=== PATIENT | male | born 1945 | race Caucasian/White ===

== ENCOUNTER 2025-02-07 14:44 | Emergency (ER) | payer MEDICARE, MEDICAID ==
[~2025-02-07] VITALS: Ht 167.6 cm; Wt 72.7 kg
[~2025-02-07 14:44] MED LIST: DOL10T PO; FLUO-1 PO; HYDR-4353 PO; TOLT2CAP7 PO; [UNRECOGNIZED DRUG - CODE] PO
[2025-02-07 15:11] VITALS: BP 150/78; PULSE 68; RESP 17; O2SAT 99
[2025-02-07 16:06] LABS: BASOPHILS % (AUTO) 0.5 % (0-1); EOSINOPHILS % (AUTO) 0.6 % (0-6); HEMATOCRIT 46.3 % (42.0-52.0); HEMOGLOBIN 15.8 g/dl (14.0-17.9); LYMPHOCYTES # (AUTO) 1.4 X10'3 (1.1-4.8); LYMPHOCYTES % (AUTO) 16.8 % (21-51); MEAN CORPUSCULAR HEMOGLOBIN 31.3 PG (27.0-31.0); MEAN CORPUSCULAR VOLUME 91.9 FL (78-98); MEAN PLATELET VOLUME 7.2 FL (7.4-10.4); MONOCYTES # (AUTO) 0.7 X10'3 (0-0.9); MONOCYTES % (AUTO) 8.6 % (2-12); NEUTROPHILS # (AUTO) 6.2 X10'3 (1.8-7.7); NEUTROPHILS % (AUTO) 73.5 % (42-75); PLATELET COUNT 243 X10'3 (140-440); RED BLOOD COUNT 5.04 X10'6 (4.70-6.10); WHITE BLOOD COUNT 8.5 X10'3 (4.5-11.0)
--- NOTE | 2025-02-07 16:06 | Physician Documentation ---
History of Present Illness ~ Chief Complaint: See Chief Complaint Stated Complaint: X3 WEEKS WITH NO SLEEP Time Seen by MD: 15:21 Primary Medical Doctor: Dr. Barnes HPI 79-year-old male presents to ED stating he has had difficulty sleeping for the last two weeks. He states he does not normally have insomnia. Denies any other diagnoses does not see a doctor. Denies any drug use occasionally drinks alcohol. Day of Onset: February 07, 2025 Medication Reconciliation Allergies: Coded Allergies: Penicillins (Unverified Allergy, Intermediate, RASH, 08/22/09) Scheduled Fluoxetine Hcl (Prozac), 80 MG PO DAILY, (Reported) Hydrocodone Bit/Acetaminophen ([place] 10-325 Tablet), 10 MG PO PRN, (Reported) Methadone Hcl (Dolophine), 10 MG PO DAILY, (Reported) Quetiapine Fumarate* (Seroquel*), 1 TAB PO HS Terazosin Hcl (Terazosin Hcl), 4 MG PO DAILY, (Reported) Tolterodine Tartrate ([place]), 2 MG PO DAILY, (Reported) Past Medical History Past Surgical History: no surgical history Alcohol Use: None Drug Use: none Review of Systems All Other Systems at this time: Reviewed and Negative Physical Exam Vital Signs: Temperature: 97.8, Heart Rate: 68, Respiratory Rate: 17, BP: 150/78, Pulse Oximetry: 99, Weight: 72.730 Oxygen Flow Rate: 0 Physical Exam General: Alert, no apparent distress. Cardiovascular: Regular rate and rhythm, no murmurs. Gastrointestinal: Soft, nontender, nondistended. Bowels sounds present. Neurologic: Oriented x4. Psychiatric: Normal mood and affect. Skin: Normal color, warm and dry. No edema, no ecchymosis. Progress Results/Orders Results/Orders Orders - SHARIF VUONG [employer] INSTRUCTOR Urinalysis, Cult If Indicated (02/07/25 15:22) Completed Orders - SHARIF VUONG [employer] IN[employer] Cbc/Diff (02/07/25 15:22) BMP (02/07/25 15:22) Vital Signs 02/07/25 02/07/25 15:11 16:34 Temp 97.8 97.8 Pulse 68 Resp 17 B/P (MAP) 150/78 Pulse Ox 99 O2 Flow Rate 0 Laboratory Tests Test 02/07/25 15:48 White Blood Count 8.5 Red Blood Count 5.04 Hemoglobin 15.8 Hematocrit 46.3 Mean Corpuscular Volume 91.9 Mean Corpuscular Hemoglobin 31.3 H Mean Corpuscular Hemoglobin Concent 34.0 Red Cell Distribution Width 14.0 Platelet Count 243 Mean Platelet Volume 7.2 L Neutrophils (%) (Auto) 73.5 Lymphocytes (%) (Auto) 16.8 L Monocytes (%) (Auto) 8.6 Eosinophils (%) (Auto) 0.6 Basophils (%) (Auto) 0.5 Neutrophils # (Auto) 6.2 Lymphocytes # (Auto) 1.4 Monocytes # (Auto) 0.7 Eosinophils # (Auto) 0.0 Basophils # (Auto) 0.0 CBC Comment Sodium Level 136 Potassium Level 3.9 Chloride Level 101 Carbon Dioxide Level 21.3 L Anion Gap 14 Blood Urea Nitrogen 12 Creatinine 1.19 H Estimated GFR/1.73 m2 59 BUN/Creatinine Ratio 10.1 Glucose Level 118 H Calcium Level 9.7 Albumin 4.2 Chemistry Comments Medical Decision Making Findings While awaiting for patient's laboratory were of value so he left the ER pres enting full evaluation. Him Seroquel to his pharmacy to help with sleep I also think there may be an element of a psychiatric illness involved in his case I can not confirm at this time Differential Dx:Considerations: Include: Alcohol abuse, Anxiety, Bipolar disorder, Conversion disorder, Depression, Encephaloathy, Homicidal, Panic disorder, Personality disorder, Schizophrenia, Substance abuse, Suicidal, Other Departure Disposition: 01 HOME / SELF CARE / HOMELESS Impression: Primary Impression: Insomnia Condition: Stable Discharge Instructions: Insomnia Referrals: NO PRIMARY CARE PROVIDER (PCP) Prescriptions Quetiapine Fumarate* (Seroquel*) 100 Mg Tablet 1 TAB PO HS for 30 Days, #30 TAB Prov: SHARIF VUONG NP 02/07/25 Education Educated: Patient Educated regarding: diagnosis Signature Scribe Signature: gThe note accurately reflects work and decisions made by me.Sharif Youssef NP 02/07/25 23:51 Attestation: The note accurately reflects work and decisions made by me.Sharif Youssef NP 02/07/25 23:51 SHARIF VUONG NP February 07, 2025 16:06
[2025-02-07] MEDS ORDERED: QUET-1 PO (16:21)
[2025-02-07 16:34] VITALS: TEMP 97.8
[2025-02-07 17:12] LABS: ALBUMIN 4.2 G/DL (3.4-5.0); ANION GAP 14 (8-16); BLOOD UREA NITROGEN 12 MG/DL (7-18); BUN/CREATININE RATIO 10.1 (10.0-20.0); CALCIUM 9.7 MG/DL (8.5-10.1); CHLORIDE 101 MMOL/L (99-107); CREATININE 1.19 MG/DL (0.60-1.10); GLUCOSE 118 MG/DL (70-104); POTASSIUM 3.9 MMOL/L (3.5-5.1); SODIUM 136 MMOL/L (135-145); TOTAL CARBON DIOXIDE 21.3 MMOL/L (24-32); eCRCL 45 ML/MIN; eGFR 59 ML/MIN
== END 2025-02-07 16:35 | disposition left against medical advice (07) ==
LOC: ER 14:45
DX: G47.00 Insomnia, unspecified (principal); Z88.0 Allergy status to penicillin
CPT/HCPCS: 36415; 80048; 85025; 99283